=== PATIENT | male | born 1935 | race Caucasian/White ===

== ENCOUNTER 2018-04-12 18:58 | Emergency (ER) | payer MEDICARE, MEDICAID ==
[2018-04-12 19:50] VITALS: BMI 28.7
--- NOTE | 2018-04-12 20:26 | ED PDOC ---
Arrival/HPI - General Chief Complaint: Lower Extremity Problem/Injury Historian: Patient - History of Present Illness Narrative History of Present Illness (Text): 04/12/18 20:25 Guero Mora is an 82 year old male, whose past medical history includes CAD with cardiac stent placement, who presents to the Emergency department complaining of generalized fatigue and lower extremity edema for the past couple of days. Patient reports dyspnea on exertion. Patient denies any fever, chest pain, cough, change in appetite, recent travel, or any other complaints. Patient also reports not taking his home medications for 3-6 months. Symptom Onset: Gradual Symptom Course: Unchanged Activities at Onset: Light Context: Home Past Medical History - Provider Review Nursing Documentation Reviewed: Yes - Infectious Disease Hx of Infectious Diseases: None - Cardiac Hx Pacemaker: No - Pulmonary Hx Respiratory Disorders: No Hx Asthma: No Hx Bronchitis: No Hx Chronic Obstructive Pulmonary Disease (COPD): No Hx Emphysema: No Hx Pneumonia: No Hx Respiratory Aspiration: No Hx Respiratory Tract Infection: No Hx Sleep Apnea: No Hx Tuberculosis: No - Neurological Hx Paralysis: No - HEENT Hx HEENT Disorder: No Hx Blind: No Hx Cataracts: No Hx Deafness: No Hx Difficulty Chewing: No Hx Epistaxis: No Hx Glaucoma: No Hx Macular Degeneration: No - Renal Hx Renal Disorder: No Hx Dialysis: No Hx Kidney Stones: No Hx Neurogenic Bladder: No Hx Pyelonephritis: No Hx Renal Cancer: No Hx Renal Failure: No - Endocrine/Metabolic Hx Endocrine Disorders: No Hx Adrenal Cancer: No Hx Diabetes Insipidus: No Hx Diabetes Mellitus Type 1: Yes Hx Diabetes Mellitus Type 2: No Hx Hyperthyroidism: No Hx Hypothyroidism: No Hx Systemic Lupus Erythematosus: No - Hematological/Oncological Hx Blood Transfusions: No Hx Blood Transfusion Reaction: No - Integumentary Hx Dermatological Disorder: No Hx Basal Cell Carcinoma: No Hx Eczema: No Hx Melanoma: No Hx Psoriasis: No Hx Squamous Cell Carcinoma: No - Musculoskeletal/Rheumatological Hx Musculoskeletal Disorders: No - Gastrointestinal Hx Gastrointestinal Disorders: No Hx Colostomy: No Hx Crohn's Disease: No Hx Diverticulitis: No Hx Gall Bladder Disease: No Hx Gastroesophageal Reflux: No Hx Gastrointestinal Ulcer: No Hx Ileostomy: No Hx Liver Failure: No Hx Pancreatitis: No HX Swallowing Problems: No - Genitourinary/Gynecological Hx Genitourinary Disorders: No Hx Hematuria: No Hx Incontinence: No Hx Prostate Problems: No Hx Sexually Transmitted Diseases: No Hx Urinary Tract Infection: No - Psychiatric Hx Emotional Abuse: No Hx Physical Abuse: No Hx Substance Use: No - Surgical History Hx Cardiac Catheterization: Yes - Anesthesia Hx Anesthesia Reactions: (N/A) Hx Malignant Hyperthermia: No - Suicidal Assessment Feels Threatened In Home Enviroment: No Family/Social History - Physician Review Nursing Documentation Reviewed: Yes Family/Social History: Unknown Family HX Smoking Status: Never Smoked Hx Alcohol Use: Yes ( YOUTH) Hx Substance Use: No Allergies/Home Meds Allergies/Adverse Reactions: Allergies No Known Allergies Allergy (Verified 04/12/18 19:50) Home Medications: Home Meds Medication Instructions Recorded Confirmed Aspirin [Ecotrin] 81 mg PO QAM 05/13/15 05/14/15 Metoprolol Tartrate [Lopressor] 25 mg PO BID 05/13/15 05/14/15 Atorvastatin [Lipitor] 20 mg PO DAILY 05/14/15 05/14/15 Clopidogrel [Plavix] 75 mg PO DAILY 05/14/15 05/14/15 Review of Systems - Physician Review All systems were reviewed & negative as marked: Yes - Review of Systems Constitutional: Fatigue. absent: Fevers Eyes: Normal ENT: Normal Respiratory: Normal. absent: SOB, Cough Cardiovascular: Normal. absent: Chest Pain Gastrointestinal: Normal. absent: Abdominal Pain, Diarrhea, Nausea, Vomiting Genitourinary Male: Normal. absent: Dysuria, Frequency, Hematuria, Urinary Output Changes Musculoskeletal: absent: Back Pain, Neck Pain, Other (+lower extremity edema) Skin: Normal. absent: Rash Neurological: Normal. absent: Headache, Dizziness Endocrine: Normal Hemo/Lymphatic: Normal Psychiatric: Normal Physical Exam Vital Signs Reviewed: Yes Temperature: Afebrile Blood Pressure: Normal Pulse: Regular Respiratory Rate: Normal Appearance: Positive for: Well-Appearing, Non-Toxic, Comfortable Pain Distress: None Mental Status: Positive for: Alert and Oriented X 3 - Systems Exam Head: Present: Atraumatic, Normocephalic Pupils: Present: PERRL Extroacular Muscles: Present: EOMI Conjunctiva: Present: Normal Mouth: Present: Moist Mucous Membranes Neck: Present: Normal Range of Motion Respiratory/Chest: Present: Rales (Rales at the bases bilaterally). No: Respiratory Distress, Accessory Muscle Use Cardiovascular: Present: Regular Rate and Rhythm, Murmurs (Systolic murmur), Normal S1, S2 Abdomen: No: Tenderness, Distention, Peritoneal Signs Back: Present: Normal Inspection Upper Extremity: Present: Normal Inspection. No: Cyanosis, Edema Lower Extremity: Present: Edema (Lower extremity pitting edema bilaterally), Other (Chronic skin changes bilaterally) Neurological: Present: GCS=15, CN II-XII Intact, Speech Normal Skin: Present: Warm, Dry, Normal Color. No: Rashes Psychiatric: Present: Alert, Oriented x 3, Normal Insight, Normal Concentration Medical Decision Making ED Course and Treatment: 04/12/18 20:25 Impression: 82 year old male complaining of generalized weakness and lower extremity edema. Plan: -- EKG -- Chest X-ray -- Labs, cardiac enzymes, BNP, TSH, T3 -- Urinalysis, urine cultures -- Rapid influenza -- Reassess and disposition Prior Visits: Notes and results from previous visits were reviewed. Progress Notes: Reviewed EKG, NSR at 74 bpm. LAD. SHUKLA. 04/12/18 21:[address] Muir, who is aware and agrees with plan. Accepts pt in to his service. Pt will go to Telemetry observation for weakness and chest pain. - Lab Interpretations I have reviewed the lab results: Yes - RAD Interpretation Radiology Orders: 04/12/18 20:15 CHEST PORTABLE [RAD] Stat Jointer Operator: ED Physician - EKG Interpretation Interpreted by ED Physician: Yes Type: 12 lead EKG - Scribe Statement The provider has reviewed the documentation as recorded by the Arleen Johnson Provider Scribe Attestation: All medical record entries made by the Scribjeanmarie were at my direction and personally dictated by me. I have reviewed the chart and agree that the record accurately reflects my personal performance of the history, physical exam, medical decision making, and the department course for this patient. I have also personally directed, reviewed, and agree with the discharge instructions and disposition. Disposition/Present on Arrival - Present on Arrival Any Indicators Present on Arrival: No History of DVT/PE: No History of Uncontrolled Diabetes: No Urinary Catheter: No History of Decub. Ulcer: No History Surgical Site Infection Following: None - Disposition Have Diagnosis and Disposition been Completed?: Yes Diagnosis: Near syncope, TSH elevation, Fatigue Disposition: HOSPITALIZED Disposition Time: 21:00 Condition: STABLE
[2018-04-12 20:40] LABS: BASO # 0.02 K/mm3 (0.0-2.0); BASO % 0.2 % (0.0-3.0); EOS # 0.4 (0.0-0.7); EOS % 4.4 % (1.5-5.0); GRAN # 4.49 (1.4-6.5); GRAN % 51.7 % (50.0-68.0); HEMOGLOBIN 12.8 g/dL (14.0-18.0); LYMPH % 33.9 % (22.0-35.0); MEAN CORPUSCULAR HEMOGLOBIN 29.6 pg (25.0-35.0); MEAN CORPUSCULAR HGB CONC 32.6 g/dl (31.0-37.0); MEAN PLATELET VOLUME 9.4 fl (7.0-11.0); MONO # 0.9 (0.1-0.6); MONO % 9.8 % (1.0-6.0); RBC 4.32 10^6/uL (3.5-6.1); RED CELL DISTRIBUTION WIDTH 13.4 % (11.5-14.5); WHITE BLOOD COUNT 8.7 10^3/uL (4.5-11.0)
[2018-04-12 20:42] LABS: URINE APPEARANCE CLEAR (CLEAR); URINE BILIRUBIN NEGATIVE (NEGATIVE); URINE BLOOD TRACE-INTACT (NEGATIVE); URINE COLOR LIGHT YELLOW (YELLOW); URINE GLUCOSE (UA) NEGATIVE (NEGATIVE); URINE LEUKOCYTE ESTERASE NEGATIVE Leu/uL (NEGATIVE); URINE PROTEIN NEGATIVE mg/dL (<30 mg/dL); URINE UROBILINOGEN 0.2 E.U./dL (<1 E.U./dL)
[2018-04-12 20:48] LABS: URINE RBC 0 - 2 /hpf (0-2)
[2018-04-12 20:50] LABS: ALB/GLOB RATIO 1.1 (1.1-1.8); ALBUMIN 4.4 g/dL (3.0-4.8); BLOOD UREA NITROGEN 19 mg/dL (7-21); CALCIUM 9.4 mg/dL (8.4-10.5); GFR NON-AFRICAN AMERICAN > 60
[2018-04-12 20:59] LABS: ALT/SGPT 22 U/L (7-56); AST/SGOT 38 U/L (17-59)
[2018-04-12 21:03] LABS: B-TYPE NATRIURETIC PEPTIDE 159 pg/mL (0-450); TROPONIN I < 0.01 ng/mL
[2018-04-12 21:22] LABS: T3 1.24 ng/mL (0.97-1.69)
--- NOTE | 2018-04-13 05:24 | CP.PCM.HP ---
<Patricia Morales - Last Filed: 04/13/18 15:04> History of Present Illness - History of Present Illness History of Present Illness: 82yo Malay-speaking male PMHx CAD w/ stent on asa & plavix, HLD, HTN presents to the ER for fatigue and b/l LE edema and skin changes for a few days. Patient reports he had stopped taking his medications for 3-6 months because he was starting to feel well and like he did not need them anymore. Patient denied any fever, chills, headache, dizziness, chest pain, palpitations, SOB, cough, abd pain, nausea, vomiting, bowel/bladder complaints, pain in his legs b/l. Patient did admit to skin changes, dry and flaking skin, and b/l LE swelling for months. He reports he has seen his PMD and a cushion gum applicator regarding this and was prescribed some ointments but reports it is not improving. Patient denied any recent travel/sick contacts/changes in appetite. PMHx: CAD w/ stent on asa & plavix, HLD, HTN PSurgHx: cardiac cath FamHx: noncontributory SocHx: denies EtOH, tobacco, drug use ALL: NKDA Meds: MAR reviewed PMD: Dr. España Present on Admission - Present on Admission Any Indicators Present on Admission: No Review of Systems - Review of Systems All systems: reviewed and no additional remarkable complaints except Review of Systems: as per HPI Past Patient History - Infectious Disease Hx of Infectious Diseases: None - Past Social History Smoking Status: Never Smoked - CARDIAC Hx Pacemaker: No - PULMONARY Hx Respiratory Disorders: No Hx Asthma: No Hx Bronchitis: No Hx Chronic Obstructive Pulmonary Disease (COPD): No Hx Emphysema: No Hx Pneumonia: No Hx Respiratory Aspiration: No Hx Respiratory Tract Infection: No Hx Sleep Apnea: No Hx Tuberculosis: No - NEUROLOGICAL Hx Paralysis: No - HEENT Hx HEENT Problems: No Hx Blind: No Hx Cataracts: No Hx Deafness: No Hx Difficulty Chewing: No Hx Epistaxis: No Hx Glaucoma: No Hx Macular Degeneration: No - RENAL Hx Chronic Kidney Disease: No Hx Dialysis: No Hx Kidney Stones: No Hx Neurogenic Bladder: No Hx Pyelonephritis: No Hx Renal (Kidney) Cancer: No Hx Renal Failure: No - ENDOCRINE/METABOLIC Hx Endocrine Disorders: No Hx Adrenal Cancer: No Hx Diabetes Insipidus: No Hx Diabetes Mellitus Type 1: Yes Hx Diabetes Mellitus Type 2: No Hx Hyperthyroidism: No Hx Hypothyroidism: No Hx Systemic Lupus Erythematosus: No - HEMATOLOGICAL/ONCOLOGICAL Hx Blood Transfusions: No Hx Blood Transfusion Reaction: No - INTEGUMENTARY Hx Dermatological Problems: No Hx Basil Cell: No Hx Eczema: No Hx Melanoma: No Hx Psoriasis: No Hx Squamous Cell: No - MUSCULOSKELETAL/RHEUMATOLOGICAL Hx Musculoskeletal Disorders: No - GASTROINTESTINAL Hx Gastrointestinal Disorders: No Hx Colostomy: No Hx Crohn's Disease: No Hx Diverticulitis: No Hx Gall Bladder Disease: No Hx Gastroesophageal Reflux: No Hx Ileostomy: No Hx Liver Failure: No Hx Pancreatitis: No HX Swallowing Problems: No - GENITOURINARY/GYNECOLOGICAL Hx Genitourinary Disorders: No Hx Hematuria: No Hx Incontinence: No Hx Prostate Problems: No Hx Sexually Transmitted Disorders: No Hx Urinary Tract Infection: No - PSYCHIATRIC Hx Emotional Abuse: No Hx Physical Abuse: No Hx Substance Use: No - SURGICAL HISTORY Hx Cardiac Catheterization: Yes - ANESTHESIA Hx Anesthesia Reactions: (N/A) Hx Malignant Hyperthermia: No Meds Home Medications: Home Medication List Medication Instructions Recorded Confirmed Type RX: Aspirin [Ecotrin] 81 mg PO QAM #30 tablet. 04/13/18 Rx RX: Atorvastatin [Lipitor] 20 mg PO DAILY #30 tab 04/13/18 Rx RX: Clopidogrel [Plavix] 75 mg PO DAILY #30 tab 04/13/18 Rx RX: Levothyroxine [Synthroid] 25 mcg PO 0600 #30 tab 04/13/18 Rx RX: Metoprolol Tartrate [Lopressor] 25 mg PO BID #60 tab 04/13/18 Rx Allergies/Adverse Reactions: Allergies Allergy/AdvReac Type Severity Reaction Status Date / Time No Known Allergies Allergy Verified 04/13/18 11:32 Physical Exam - Constitutional Appears: Non-toxic, No Acute Distress - Head Exam Head Exam: ATRAUMATIC, NORMAL INSPECTION, NORMOCEPHALIC - Eye Exam Eye Exam: EOMI, Normal appearance, PERRL. absent: Conjunctival injection, Scleral icterus - ENT Exam ENT Exam: Mucous Membranes Moist - Neck Exam Neck exam: Positive for: Full Rom, Normal Inspection - Respiratory Exam Respiratory Exam: Clear to Auscultation Bilateral, NORMAL BREATHING PATTERN. absent: Accessory Muscle Use, Rales, Rhonchi, Wheezes, Respiratory Distress - Cardiovascular Exam Cardiovascular Exam: +S1, +S2, Systolic Murmur - GI/Abdominal Exam GI & Abdominal Exam: Normal Bowel Sounds, Soft. absent: Firm, Guarding, Rigid, Tenderness - Extremities Exam Additional comments: b/l LE dry and flaking skin changes noted with mild pitting edema and erythema - Back Exam Back exam: NORMAL INSPECTION. absent: rash noted, tenderness - Neurological Exam Neurological exam: Alert, CN II-XII Intact, Normal Gait, Oriented x3 - Psychiatric Exam Psychiatric exam: Normal Affect, Normal Mood - Skin Skin Exam: Dry, Warm Results - Vital Signs Recent Vital Signs: Last Vital Signs Temp 98.7 F 04/12/18 20:31 Pulse 72 04/12/18 22:40 Resp 18 04/12/18 22:40 BP 130/64 04/12/18 22:40 Pulse Ox 99 04/12/18 22:40 - Labs Result Diagrams: 04/12/18 20:25 04/12/18 20:25 Labs: Laboratory Results - last 24 hr 04/12/18 04/12/18 04/12/18 20:25 20:25 20:25 WBC 8.7 RBC 4.32 Hgb 12.8 L Hct 39.3 L MCV 91.0 MCH 29.6 MCHC 32.6 RDW 13.4 Plt Count 221 MPV 9.4 Gran % 51.7 Lymph % (Auto) 33.9 [place] % (Auto) 9.8 H Eos % (Auto) 4.4 Baso % (Auto) 0.2 Gran # 4.49 Lymph # (Auto) 3.0 [place] # (Auto) 0.9 H Eos # (Auto) 0.4 Baso # (Auto) 0.02 Sodium 138 Potassium 4.7 Chloride 102 Carbon Dioxide 30 Anion Gap 11 BUN 19 Creatinine 1.1 Est GFR ( Amer) > 60 Est GFR (Non-Af Amer) > 60 Random Glucose 107 Calcium 9.4 Magnesium 2.3 H Total Bilirubin 0.5 AST 38 ALT 22 Alkaline Phosphatase 156 H Lactate Dehydrogenase 584 Total Creatine Kinase 95 Troponin I < 0.01 D NT-Pro-B Natriuret Pep 159 Total Protein 8.4 H Albumin 4.4 Globulin 4.0 Albumin/Globulin Ratio 1.1 Total T3 TSH 3rd Generation Urine Color Light yellow Urine Appearance Clear Urine pH 6.0 Ur Specific [place] 1.025 Urine Protein Negative Urine Glucose (UA) Negative Urine Ketones Negative Urine Blood Trace-intact H Urine Nitrate Negative Urine Bilirubin Negative Urine Urobilinogen 0.2 Ur Leukocyte Esterase Negative Urine RBC 0 - 2 Urine WBC None Ur Epithelial Cells None 04/12/18 20:25 WBC RBC Hgb Hct MCV MCH MCHC RDW Plt Count MPV Gran % Lymph % (Auto) [place] % (Auto) Eos % (Auto) Baso % (Auto) Gran # Lymph # (Auto) [place] # (Auto) Eos # (Auto) Baso # (Auto) Sodium Potassium Chloride Carbon Dioxide Anion Gap BUN Creatinine Est GFR ( Amer) Est GFR (Non-Af Amer) Random Glucose Calcium Magnesium Total Bilirubin AST ALT Alkaline Phosphatase Lactate Dehydrogenase Total Creatine Kinase Troponin I NT-Pro-B Natriuret Pep Total Protein Albumin Globulin Albumin/Globulin Ratio Total T3 1.24 TSH 3rd Generation 6.69 H Urine Color Urine Appearance Urine pH Ur Specific [place] Urine Protein Urine Glucose (UA) Urine Ketones Urine Blood Urine Nitrate Urine Bilirubin Urine Urobilinogen Ur Leukocyte Esterase Urine RBC Urine WBC Ur Epithelial Cells Assessment & Plan - Assessment and Plan (Free Text) Assessment: - Chest pain r/o ACS - Weakness - CAD w/ stent on asa & plavix - HLD - HTN - Hypothyroidism - B/l LE skin changes Plan: Patient's blood work, vitals, and imaging was reviewed. Patient was admitted to TELE-Obs for chest pain r/o ACS. Patient had 3 negative troponin and EKG had no acute ST changes. Cardiology Dr. Blevins was consulted. Patient blood work revealed hypothyroidism and patient was started on Synthroid. Patient was continued on home medications asa and plavix in light of stent placed in 2015. Patient was also continued on home Lopressor for HTN and home Lipitor for HLD. Regarding b/l LE skin changes, patient was advised to follow up with outpatient dermatology. Patient was on a HHD and monitored closely. Discussed with Dr. Isadora Morales PGY3 <Talib Muir S - Last Filed: 04/14/18 15:00> Results - Vital Signs Recent Vital Signs: Last Vital Signs Temp 97.2 F L 04/13/18 12:00 Pulse 84 04/13/18 12:00 Resp 19 04/13/18 12:00 BP 117/57 L 04/13/18 12:00 Pulse Ox 96 04/13/18 12:00 - Labs Result Diagrams: 04/12/18 20:25 04/12/18 20:25 Labs: Laboratory Results - last 24 hr 04/13/18 04/13/18 11:06 11:06 Transferrin 202.48 L Ferritin 48.1 Vitamin B12 219 L Folate 10.5 Assessment & Plan - Assessment and Plan (Free Text) Assessment: Pt seen and examined by me. This is late entry. I have reviewed the note of the bio medical technician and I agree with it. I have discussed the assessment and plan with the resident. I have reviewed the medications and the last labs. Pt had atypical CP and had stopped his medications. He has a hx of CAD and was on ASA and Plavix. He will be seen by Cardiology for consult. I spoke to the family at the bedside to get the history. He does not have CP at this time. Trop have been negative.
--- NOTE | 2018-04-13 09:14 | US ---
HISTORY: Leg pain and swelling. Evaluate for DVT PHYSICIAN(S): Yan Marshall MD. TECHNIQUE: Duplex sonography and color-flow Doppler with graded compression were used to evaluate the deep venous systems of both lower extremities. FINDINGS: The visualized deep venous systems of both lower extremities are sonographically normal and compressible. Normal wave forms and augmentation are seen. There is no sonographic evidence for deep venous thrombosis in the visualized segments of both lower extremities. IMPRESSION: No sonographic evidence for deep venous thrombosis in the visualized segments of both lower extremities.
--- NOTE | 2018-04-13 09:27 | CARD ---
APPROVED REPORT Date of service: 04/12/2018 EKG Measurement Heart [id number] <Conclusion> Sinus rhythm with premature atrial complexes Left axis deviation Right bundle branch block Abnormal ECG
[2018-04-13 09:53] VITALS: O2SAT 96
--- NOTE | 2018-04-13 09:56 | RAD ---
Date of service: 04/12/2018 HISTORY: weakness COMPARISON: 04/09/2015 FINDINGS: LUNGS: No active pulmonary disease. PLEURA: No significant pleural effusion identified, no pneumothorax apparent. CARDIOVASCULAR: Aortic calcification Normal cardiac size. No pulmonary vascular congestion. OSSEOUS STRUCTURES: No significant abnormalities. VISUALIZED UPPER ABDOMEN: Normal. OTHER FINDINGS: None. IMPRESSION: No active disease.
[2018-04-13 11:30] LABS: TOTAL IRON BINDING CAPACITY 280 ug/dL (261-462)
[2018-04-13 11:33] LABS: TROPONIN I 0.02 ng/mL
[2018-04-13 11:42] LABS: % IRON SATURATION 34 % (20-55); IRON 96 ug/dL (45-180)
[2018-04-13 13:32] VITALS: BP 117/57; PULSE 84; RESP 19; TEMP 97.2
--- NOTE | 2018-04-13 13:59 | CP.PCM.DIS ---
<Patricia Morales - Last Filed: 04/13/18 15:22> Provider - Provider Date of Admission: 04/12/18 21:36 Attending physician: Talib Muir MD Primary care physician: Dr. España Consults: 04/12/18 21:33 Consult [Physician Consult] Stat Comment: Consulting Provider: Rafaela Blevins Consulting Physician: Rafaela Blevins Reason for Consult: CAD Time Spent in preparation of Discharge (in minutes): 45 Hospital Course - Lab Results Lab Results: Most Recent Lab Values WBC 8.7 10^3/uL (4.5-11.0) 04/12/18 20:25 RBC 4.32 10^6/uL (3.5-6.1) 04/12/18 20:25 Hgb 12.8 g/dL (14.0-18.0) L 04/12/18 20:25 Hct 39.3 % (42.0-52.0) L 04/12/18 20:25 MCV 91.0 fl (80.0-105.0) 04/12/18 20:25 MCH 29.6 pg (25.0-35.0) 04/12/18 20:25 MCHC 32.6 g/dl (31.0-37.0) 04/12/18 20:25 RDW 13.4 % (11.5-14.5) 04/12/18 20:25 Plt Count 221 10^3/uL (120.0-450.0) 04/12/18 20:25 MPV 9.4 fl (7.0-11.0) 04/12/18 20:25 Gran % 51.7 % (50.0-68.0) 04/12/18 20:25 Lymph % (Auto) 33.9 % (22.0-35.0) 04/12/18 20:25 [place] % (Auto) 9.8 % (1.0-6.0) H 04/12/18 20:25 Eos % (Auto) 4.4 % (1.5-5.0) 04/12/18 20:25 Baso % (Auto) 0.2 % (0.0-3.0) 04/12/18 20:25 Gran # 4.49 (1.4-6.5) 04/12/18 20:25 Lymph # (Auto) 3.0 (1.2-3.4) 04/12/18 20:25 [place] # (Auto) 0.9 (0.1-0.6) H 04/12/18 20:25 Eos # (Auto) 0.4 (0.0-0.7) 04/12/18 20:25 Baso # (Auto) 0.02 K/mm3 (0.0-2.0) 04/12/18 20:25 Sodium 138 mmol/L (132-148) 04/12/18 20:25 Potassium 4.7 mmol/L (3.6-5.0) 04/12/18 20:25 Chloride 102 mmol/L (98-107) 04/12/18 20:25 Carbon Dioxide 30 mmol/L (21-33) 04/12/18 20:25 Anion Gap 11 (10-20) 04/12/18 20:25 BUN 19 mg/dL (7-21) 04/12/18 20:25 Creatinine 1.1 mg/dl (0.8-1.5) 04/12/18 20:25 Est GFR ( Amer) > 60 04/12/18 20:25 Est GFR (Non-Af Amer) > 60 04/12/18 20:25 Random Glucose 107 mg/dL (70-110) 04/12/18 20:25 Calcium 9.4 mg/dL (8.4-10.5) 04/12/18 20:25 Magnesium 2.3 mg/dL (1.7-2.2) H 04/12/18 20:25 Iron 96 ug/dL (45-180) 04/13/18 11:06 TIBC 280 ug/dL (261-462) 04/13/18 11:06 % Saturation 34 % (20-55) 04/13/18 11:06 Total Bilirubin 0.5 mg/dL (0.2-1.3) 04/12/18 20:25 AST 38 U/L (17-59) 04/12/18 20:25 ALT 22 U/L (7-56) 04/12/18 20:25 Alkaline Phosphatase 156 U/L (38-126) H 04/12/18 20:25 Lactate Dehydrogenase 584 U/L (333-699) 04/12/18 20:25 Total Creatine Kinase 95 U/L (35-230) 04/12/18 20:25 Troponin I 0.02 ng/mL D 04/13/18 11:06 NT-Pro-B Natriuret Pep 159 pg/mL (0-450) 04/12/18 20:25 Total Protein 8.4 g/dL (5.8-8.3) H 04/12/18 20:25 Albumin 4.4 g/dL (3.0-4.8) 04/12/18 20:25 Globulin 4.0 gm/dL 04/12/18 20:25 Albumin/Globulin Ratio 1.1 (1.1-1.8) 04/12/18 20:25 Total T3 1.24 ng/mL (0.97-1.69) 04/12/18 20:25 TSH 3rd Generation 6.69 mIU/mL (0.46-4.68) H 04/12/18 20:25 Urine Color Light yellow (YELLOW) 04/12/18 20:25 Urine Appearance Clear (CLEAR) 04/12/18 20:25 Urine pH 6.0 (4.7-8.0) 04/12/18 20:25 Ur Specific [place] 1.025 (1.005-1.035) 04/12/18 20:25 Urine Protein Negative mg/dL (<30 mg/dL) 04/12/18 20:25 Urine Glucose (UA) Negative mg/dL (NEGATIVE) 04/12/18 20:25 Urine Ketones Negative mg/dL (NEGATIVE) 04/12/18 20:25 Urine Blood Trace-intact (NEGATIVE) H 04/12/18 20:25 Urine Nitrate Negative (NEGATIVE) 04/12/18 20:25 Urine Bilirubin Negative (NEGATIVE) 04/12/18 20:25 Urine Urobilinogen 0.2 E.U./dL (<1 E.U./dL) 04/12/18 20:25 Ur Leukocyte Esterase Negative [place]/uL (NEGATIVE) 04/12/18 20:25 Urine RBC 0 - 2 /hpf (0-2) 04/12/18 20:25 Urine WBC None /hpf (0-6) 04/12/18 20:25 Ur Epithelial Cells None /hpf (0-5) 04/12/18 20:25 - Hospital Course Hospital Course: Upon Admission 82yo Cymro-speaking male PMHx CAD w/ stent on asa & plavix, HLD, HTN presents to the ER for fatigue and b/l LE edema and skin changes for a few days. Patient reports he had stopped taking his medications for 3-6 months because he was starting to feel well and like he did not need them anymore. Patient denied any fever, chills, headache, dizziness, chest pain, palpitations, SOB, cough, abd pain, nausea, vomiting, bowel/bladder complaints, pain in his legs b/l. Patient did admit to skin changes, dry and flaking skin, and b/l LE swelling for months. He reports he has seen his PMD and a clay artisan regarding this and was prescribed some ointments but reports it is not improving. Patient denied any recent travel/sick contacts/changes in appetite. Hospital Course Patient's blood work, vitals, and imaging was reviewed. Patient was admitted to TELE-Obs for chest pain r/o ACS. Patient had 3 negative troponin and EKG had no acute ST changes. Cardiology Dr. Blevins was consulted. Patient blood work revealed hypothyroidism and patient was started on Synthroid. Patient was continued on home medications asa and plavix in light of stent placed in 2015. Patient was also continued on home Lopressor for HTN and home Lipitor for HLD. Regarding b/l LE skin changes, patient was advised to follow up with outpatient dermatology. Patient was on a HHD and monitored closely. Patient clinically improved and on day of discharge patient was deemed medically optimized for discharge home. Patient counseled thoroughly on the importance of taking his medications daily. Discharge Instructions "You are being discharged form [facility]. Please take the following medications as prescribed: -ASA 81mg 1 tab by mouth daily -Lipitor 20mg 1 tab by mouth daily -Plavix 75mg 1 tab by mouth daily -Lopressor 25mg 1 tab by mouth twice daily -Synthroid 25mg 1 tab by mouth daily Please follow up with your Primary Care Doctor Dr. España within 7 days. Please also follow up with your Child Welfare Manager within 10 days. It is important for you to take all your medications as prescribed every day. Please follow a heart healthy low carb low fat diet. If symptoms return please visit your nearest Emergency Room. Usted est siendo dado de yury de [facility]. Por favor, tome los siguientes medicamentos segn lo prescrito: -ASA 81mg 1 ficha por va oral al da. -Lipitor 20mg 1 pestaa por va oral al da. -Plavix 75mg 1 pestaa por va oral al da. -Lopressor 25mg 1 pestaa por va oral dos veces al da -Snido 25mg 1 pestaa por va oral al da. Por favor jay un seguimiento con sanderson mdico de atencin primaria Dr. España dentro de los 7 fuller. Por favor, tambin jay un seguimiento con sanderson cardilogo dentro de los 10 fuller. Es importante que tome todos dyllan medicamentos segn lo prescrito todos los fuller. Por favor, siga kashif dieta baja en grasas baja en carbohidratos para un corazn saludable Si los sntomas regresan, visite la camron de emergencias ms emma." Patient and at bedside voiced understanding and agreement with discharge plan. Please note this is a discharge summary. For full hospital course please refer to EMR. Discharge Exam - Additional Findings Additional findings: - Constitutional Appears: Non-toxic, No Acute Distress - Head Exam Head Exam: ATRAUMATIC, NORMAL INSPECTION, NORMOCEPHALIC - Eye Exam Eye Exam: EOMI, Normal appearance, PERRL. absent: Conjunctival injection, Scleral icterus - ENT Exam ENT Exam: Mucous Membranes Moist - Neck Exam Neck exam: Positive for: Full Rom, Normal Inspection - Respiratory Exam Respiratory Exam: Clear to Auscultation Bilateral, NORMAL BREATHING PATTERN. absent: Accessory Muscle Use, Rales, Rhonchi, Wheezes, Respiratory Distress - Cardiovascular Exam Cardiovascular Exam: +S1, +S2, Systolic Murmur - GI/Abdominal Exam GI & Abdominal Exam: Normal Bowel Sounds, Soft. absent: Firm, Guarding, Rigid, Tenderness - Extremities Exam Additional comments: b/l LE dry and flaking skin changes noted with mild pitting edema and erythema - Back Exam Back exam: NORMAL INSPECTION. absent: rash noted, tenderness - Neurological Exam Neurological exam: Alert, CN II-XII Intact, Normal Gait, Oriented x3 - Psychiatric Exam Psychiatric exam: Normal Affect, Normal Mood - Skin Skin Exam: Dry, Warm Discharge Plan - Discharge Medications Prescriptions: RX: Aspirin [Ecotrin] 81 mg PO QAM #30 tablet. RX: Atorvastatin [Lipitor] 20 mg PO DAILY #30 tab RX: Metoprolol Tartrate [Lopressor] 25 mg PO BID #60 tab RX: Clopidogrel [Plavix] 75 mg PO DAILY #30 tab RX: Levothyroxine [Synthroid] 25 mcg PO 0600 #30 tab - Follow Up Plan Condition: STABLE Disposition: HOME/ ROUTINE Instructions: Fatigue (DC), Near Fainting (DC) Additional Instructions: You are being discharged form [facility]. Please take the following medications as prescribed: -ASA 81mg 1 tab by mouth daily -Lipitor 20mg 1 tab by mouth daily -Plavix 75mg 1 tab by mouth daily -Lopressor 25mg 1 tab by mouth twice daily -Synthroid 25mg 1 tab by mouth daily Please follow up with your Primary Care Doctor Dr. España within 7 days. Please also follow up with your Child Welfare Manager within 10 days. It is important for you to take all your medications as prescribed every day. Please follow a heart healthy low carb low fat diet. If symptoms return please visit your nearest Emergency Room. Usted est siendo dado de yury de [facility]. Por favor, tome los siguientes medicamentos segn lo prescrito: -ASA 81mg 1 ficha por va oral al da. -Lipitor 20mg 1 pestaa por va oral al da. -Plavix 75mg 1 pestaa por va oral al da. -Lopressor 25mg 1 pestaa por va oral dos veces al da -Snido 25mg 1 pestaa por va oral al da. Por favor jay un seguimiento con sanderson mdico de atencin primaria Dr. España dentro de los 7 fuller. Por favor, tambin jay un seguimiento con sanderson cardilogo dentro de los 10 fuller. Es importante que tome todos dyllan medicamentos segn lo prescrito todos los fuller. Por favor, siga kashif dieta baja en grasas baja en carbohidratos para un corazn saludable Si los sntomas regresan, visite la camron de emergencias ms cercana. Referrals: Daphne España DO [Family Provider] - <Talib Muir S - Last Filed: 04/14/18 14:57> Provider - Provider Consults: 04/12/18 21:33 Consult [Physician Consult] Stat Comment: Consulting Provider: Rafaela Blevins Consulting Physician: Rafaela Blevins Reason for Consult: CAD Hospital Course - Lab Results Lab Results: Micro Results 04/12/18 20:25 Urine Random Urine Culture - Final No Growth (<1,000 CFU/ML) Most Recent Lab Values WBC 8.7 10^3/uL (4.5-11.0) 04/12/18 20:25 RBC 4.32 10^6/uL (3.5-6.1) 04/12/18 20:25 Hgb 12.8 g/dL (14.0-18.0) L 04/12/18 20:25 Hct 39.3 % (42.0-52.0) L 04/12/18 20:25 MCV 91.0 fl (80.0-105.0) 04/12/18 20:25 MCH 29.6 pg (25.0-35.0) 04/12/18 20:25 MCHC 32.6 g/dl (31.0-37.0) 04/12/18 20:25 RDW 13.4 % (11.5-14.5) 04/12/18 20:25 Plt Count 221 10^3/uL (120.0-450.0) 04/12/18 20:25 MPV 9.4 fl (7.0-11.0) 04/12/18 20:25 Gran % 51.7 % (50.0-68.0) 04/12/18 20:25 Lymph % (Auto) 33.9 % (22.0-35.0) 04/12/18 20:25 [place] % (Auto) 9.8 % (1.0-6.0) H 04/12/18 20:25 Eos % (Auto) 4.4 % (1.5-5.0) 04/12/18 20:25 Baso % (Auto) 0.2 % (0.0-3.0) 04/12/18 20:25 Gran # 4.49 (1.4-6.5) 04/12/18 20:25 Lymph # (Auto) 3.0 (1.2-3.4) 04/12/18 20:25 [place] # (Auto) 0.9 (0.1-0.6) H 04/12/18 20:25 Eos # (Auto) 0.4 (0.0-0.7) 04/12/18 20:25 Baso # (Auto) 0.02 K/mm3 (0.0-2.0) 04/12/18 20:25 Sodium 138 mmol/L (132-148) 04/12/18 20:25 Potassium 4.7 mmol/L (3.6-5.0) 04/12/18 20:25 Chloride 102 mmol/L (98-107) 04/12/18 20:25 Carbon Dioxide 30 mmol/L (21-33) 04/12/18 20:25 Anion Gap 11 (10-20) 04/12/18 20:25 BUN 19 mg/dL (7-21) 04/12/18 20:25 Creatinine 1.1 mg/dl (0.8-1.5) 04/12/18 20:25 Est GFR ( Amer) > 60 04/12/18 20:25 Est GFR (Non-Af Amer) > 60 04/12/18 20:25 Random Glucose 107 mg/dL (70-110) 04/12/18 20:25 Calcium 9.4 mg/dL (8.4-10.5) 04/12/18 20:25 Magnesium 2.3 mg/dL (1.7-2.2) H 04/12/18 20:25 Iron 96 ug/dL (45-180) 04/13/18 11:06 TIBC 280 ug/dL (261-462) 04/13/18 11:06 % Saturation 34 % (20-55) 04/13/18 11:06 Transferrin 202.48 mg/dL (206-381) L 04/13/18 11:06 Ferritin 48.1 ng/mL 04/13/18 11:06 Total Bilirubin 0.5 mg/dL (0.2-1.3) 04/12/18 20:25 AST 38 U/L (17-59) 04/12/18 20:25 ALT 22 U/L (7-56) 04/12/18 20:25 Alkaline Phosphatase 156 U/L (38-126) H 04/12/18 20:25 Lactate Dehydrogenase 584 U/L (333-699) 04/12/18 20:25 Total Creatine Kinase 95 U/L (35-230) 04/12/18 20:25 Troponin I 0.02 ng/mL D 04/13/18 11:06 NT-Pro-B Natriuret Pep 159 pg/mL (0-450) 04/12/18 20:25 Total Protein 8.4 g/dL (5.8-8.3) H 04/12/18 20:25 Albumin 4.4 g/dL (3.0-4.8) 04/12/18 20:25 Globulin 4.0 gm/dL 04/12/18 20:25 Albumin/Globulin Ratio 1.1 (1.1-1.8) 04/12/18 20:25 Vitamin B12 219 pg/mL (239-931) L 04/13/18 11:06 Folate 10.5 ng/mL 04/13/18 11:06 Total T3 1.24 ng/mL (0.97-1.69) 04/12/18 20:25 TSH 3rd Generation 6.69 mIU/mL (0.46-4.68) H 04/12/18 20:25 Urine Color Light yellow (YELLOW) 04/12/18 20:25 Urine Appearance Clear (CLEAR) 04/12/18 20:25 Urine pH 6.0 (4.7-8.0) 04/12/18 20:25 Ur Specific [place] 1.025 (1.005-1.035) 04/12/18 20:25 Urine Protein Negative mg/dL (<30 mg/dL) 04/12/18 20:25 Urine Glucose (UA) Negative mg/dL (NEGATIVE) 04/12/18 20:25 Urine Ketones Negative mg/dL (NEGATIVE) 04/12/18 20:25 Urine Blood Trace-intact (NEGATIVE) H 04/12/18 20:25 Urine Nitrate Negative (NEGATIVE) 04/12/18 20:25 Urine Bilirubin Negative (NEGATIVE) 04/12/18 20:25 Urine Urobilinogen 0.2 E.U./dL (<1 E.U./dL) 04/12/18 20:25 Ur Leukocyte Esterase Negative [place]/uL (NEGATIVE) 04/12/18 20:25 Urine RBC 0 - 2 /hpf (0-2) 04/12/18 20:25 Urine WBC None /hpf (0-6) 04/12/18 20:25 Ur Epithelial Cells None /hpf (0-5) 04/12/18 20:25 - Hospital Course Hospital Course: Pt seen and examined by me. This is a late entry. I have reviewed the note of the medical claims assistant and I agree with it. I have discussed the assessment and plan with the resident. I have reviewed the medications and the last labs. Pt had CP that was atypical. He was seen by Dr Blevins - cardiology. He was cleared to go home. F/u with his PMD. He had stopped taking his medications and was advised by me to continue the medications. I spoke to the pt's daughter and she understood.
[2018-04-13 17:15] LABS: FERRITIN 48.1 ng/mL
[2018-04-13 17:45] LABS: FOLATE 10.5 ng/mL
--- NOTE | 2018-04-13 18:33 | CON ---
DATE: 04/13/2018 REASON FOR CONSULTATION AND FOLLOWUP: Cardiac evaluation, history of coronary artery disease admitted with generalized weakness and leg pain. In summary, this is an 82-year-old male with past medical history of significant for coronary artery disease, status post PTCA on 05/14/2015 with mid LAD was placed who admitted yesterday with complain of leg pain. Denies any chest pain. Denies any shortness of breath. Denies any leg pain. PAST MEDICAL HISTORY: Significant for coronary artery disease, status post PTCA on 05/08/2015 with the patient had a stent was placed in the mid LAD at that time, the cardiac catheterization reveal single vessel disease mid LAD 80% stenosis before after the critical stenosis and there is a long tubular 70% of stenosis noted, mild to moderate disease in mid RCA, preserved LV ejection of 55%-60% in the range of 12. Successful PTCA with drug-eluting stent in mid LAD was done. RECENT CARDIAC WORKUP FOLLOWS: The patient had a cardiac catheterization stent done in the mid LAD on 05/14/2015. History of cardiography on 04/10/2015 revealed ejection fraction 5%, mild aortic stenosis versus aortic sclerosis, mild tricuspid regurgitation. SOCIAL HISTORY: Denies smoking. Denies any history of alcohol abuse. CURRENT MEDICATION: The patient is on metoprolol 25 mg daily, 5 mg daily, atorvastatin 20 mg daily, aspirin 81 mg daily. ALLERGIES: NO KNOWN DRUG ALLERGY. REVIEW OF SYSTEMS: As per HPI. PHYSICAL EXAMINATION: GENERAL: Height of the patient is 5 feet. Weight of the patient 162 pounds. Body mass index 28.7 kg/m2. VITAL SIGNS: Rest of the vitals temperature afebrile, heart rate 72, blood pressure 120/53. HEENT: PERRLA. Extraocular muscles intact. NECK: Supple. No carotid bruit or thyromegaly. CHEST: Clear to auscultation. HEART: S1 and S2, regular. ABDOMEN: Soft. EXTREMITIES: Clubbing and cyanosis negative. LABORATORY DATA: WBC , hemoglobin 12.8, hematocrit 39.3 and platelet count 221. Chemistry shows sodium 130, potassium 4.0, chloride 102, anion gap of 11, BUN 19, creatinine 1.1. Troponin 0.01, 0.02 negative. TSH 6.67. EKG shows normal sinus. IMPRESSION AND PLAN: An 82-year-old male with a past medical history significant for coronary artery disease, hypertension, hyperlipidemia, history of percutaneous transluminal coronary angioplasty in the past. No complaint of chest pain. We will get lipid profile, TSH and hemoglobin A1c. We will follow with you. Get echo to get to asses LV function. Thank you Dr. Cortés for providing us this opportunity in taking care of the patient, Morgan Jack. Rafaela Blevins MD
[2018-04-14] MEDS ORDERED: Levothyroxine 25 MCG TAB PO SCH (06:00)
== END 2018-04-13 14:20 | disposition home or self-care (01) ==
LOC: ED 18:58 → ERH 21:36 → UNDOADMOB 21:36 → ERH 04-13 11:14 → ED 04-13 14:20
DX: R55 Syncope and collapse (principal); R53.83 Other fatigue; R94.6 Abnormal results of thyroid function studies; I25.10 Atherosclerotic heart disease of native coronary artery without angina pectoris; I10 Essential (primary) hypertension; E78.5 Hyperlipidemia, unspecified; E03.9 Hypothyroidism, unspecified; Z95.5 Presence of coronary angioplasty implant and graft; Z79.02 Long term (current) use of antithrombotics/antiplatelets